=== PATIENT | male | born 1960 | race Caucasian/White ===

== ENCOUNTER → 2016-03-21 | Outpatient (CLI) | payer BC ==
--- NOTE | 2016-03-21 15:22 | DIAGNOSTIC IMAGING REPORT ---
LEFT FOOT 3 VIEWS HISTORY: Left first and fifth toe pain. COMPARISON: None. FINDINGS: There is no fracture or dislocation. Soft tissues are unremarkable. The Lisfranc joint is intact. Incidental note is made of an os cuboid. 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 IMPRESSION: Mild degenerative changes within the left foot as described above. No acute fracture or dislocation. Electronically signed by: Sukhjinder Thakur M.D. 03/21/2016 3:20 PM Dictated Date/Time: 03/21/2016 3:16 PM
== END | disposition home or self-care (01) ==
LOC: C.RAD1850 15:02
PROVIDERS: ATTEND Family Medicine
DX: G57.60 Lesion of plantar nerve, unspecified lower limb (principal)